=== PATIENT | female | born 1985 | race Caucasian/White ===

== ENCOUNTER 2023-09-16 02:06 | Emergency (ER) | payer OTHER ==
[~2023-09-16] VITALS: Ht 175.3 cm; Wt 63.5 kg
[2023-09-16 02:56] VITALS: BP 131/68; TEMP 98.1; O2SAT 98
== END 2023-09-16 03:13 | disposition home or self-care (01) ==
LOC: ER 02:06
DX: Z04.1 Encounter for examination and observation following transport accident (principal); V89.2XXA Person injured in unspecified motor-vehicle accident, traffic, initial encounter; Y93.89 Activity, other specified; Y92.89 Other specified places as the place of occurrence of the external cause; Y99.8 Other external cause status